=== PATIENT | female | born 2000 | race Caucasian/White ===

== ENCOUNTER 2024-07-01 18:59 | Emergency (ER) | payer OTHER, SELFPAY ==
[2024-07-01 19:04] VITALS: BP 142/102
--- NOTE | 2024-07-01 20:51 | ED.GENMED ---
History of Present Illness
General
Chief Complaint: Headache
Source: patient
Exam Limitations: none
Time Seen by Provider: 07/01/24 20:11
Nursing documentation reviewed up to this point in time: agreed with
History of Present Illness
History of Present Illness:
Patient to ED with headache. Symptoms started 1 mos ago. States she had implantable control placed 1 mos ago. Headahce developed the next day. 2 weeks later she still c/o headache so she had the device removed. States headache continues.
She was seen by PCP and givne rx for sumatriptan. SHe took 1 dose without improvement. Brought self to ED for eval. Denies fever/chills, n/v/d. No vision changes. No history of headaches
Past History
Past History
ED Past Medical History: None
Review of Systems
Review of Systems
Allergies reviewed?: Yes
All Other Systems: ROS reviewed and negative except as documented in HPI and ROS
Constitutional: Reports no symptoms
EENT: Reports no symptoms
Respiratory: Reports no symptoms
Cardiac: Reports no symptoms
ABD/GI: Reports no symptoms
: Reports no symptoms
Musculoskeletal: Reports no symptoms
Skin: Reports no symptoms
Neurological: Reports headache
Psychiatric: Reports no symptoms
Phy Exam
General Physical Exam
General Presentation: well appearing and mild distress
General age: appears stated age
General Skin: warm and dry
General Habitus: normal
General Mental: alert
General Hydration: appears well hydrated
Neurological Exam
Neurological Exam: alert, oriented x3, CN II-XII intact, no motor deficits, no sensory deficits, speech normal and normal gait
Musculoskeletal Exam
Musculoskeletal Exam: full ROM and neuro vasc intact
Skin Exam
Skin Exam: normal color, warm/dry and no rash
Psychiatric Exam
Psychiatric Exam: normal mood/affect
Course
Orders/Labs/Results
Orders:
Orders
07/01/24 20:51
Test Result ONCE
07/01/24 20:58
HCG, Urine Qualitative Screen Urgent
Date Specimen was Collected: 07/01/24
Time Specimen was Collected: 20:54
07/01/24 21:38
CT Head W/o Iv Contrast Urgent
Comment:
Reason For Exam: atypical headache
07/01/24 23:07
Ketorolac [Toradol] 30 mg IM NOW STA
Vital Signs
Initial and Last Documented VS:
Initial Vital Signs
Temp Pulse Resp BP Pulse Ox
98.7 F 107 15 142/102 99
07/01/24 19:04 07/01/24 19:04 07/01/24 19:04 07/01/24 19:04 07/01/24 19:04
Last Documented Vital Signs
Temp Pulse Resp BP Pulse Ox
98.7 F 78 16 138/82 99
07/01/24 19:04 07/01/24 21:18 07/01/24 22:43 07/01/24 21:18 07/01/24 21:18
*Radiology
Radiology exam reviewed: radiology read reviewed
*Pulse Oximetry
Patient hypoxic: no
*Critical Care Note
Total Time (30-74mins, 75-104mins- exclusive of procedures): Not Applicable
Update Note
Update Note:
CT results reviewed with patient. Neuro exam without concerning findings. GIven dose of toradol in ED. WIll discharge home and she will follow upw ith PCP again this week. Given instructions on s/s to return to ED and she is agreeable to plan.
ED Attending Note
-
Portions of this chart may have been created with voice recognition software.� Occasional wrong word or��sound alike� substitutions may have occurred due to the inherent limitations of voice recognition software.
Discharge Plan
Departure
Patient Disposition: Home (Routine Discharge)
Date of Disposition: 07/01/24
Time of Disposition: 23:08
Patient with high blood pressure during this ER visit?: No
Condition: Good
Covid-19: Not Applicable
Discharge Problem:
Headache
Instructions: Headache, Adult (DC)
Prescriptions:
No Action
ondansetron 4 MG tablet,disintegrating
4 mg PO TIDPRN PRN (Reason: nausea) Qty: 12 0RF
Referrals:
Clay Buchanan, [Family Provider] - Follow up in 2-3 days
Interventions
Interventions:
*Risk Screen - Suicide Last Done: 07/01/24 19:00
*General Assessment Last Done: 07/01/24 19:04
*Neglect/Abuse Screening Last Done: 07/01/24 19:04
*ED- Fall Risk Assessment Last Done: 07/01/24 22:43
*ED COVID-19 Vaccine History Last Done: 07/01/24 19:04
ED- Neurological Assessment Last Done: 07/01/24 21:18
Discharge Date and Time
Print Language: TURKISH
[2024-07-01 21:16] LABS: HCG, Urine Qualitative Screen Negative
[2024-07-01 21:18] VITALS: BP 138/82
[2024-07-01 21:24] VITALS: BMI 33.2
[2024-07-01] MEDS: TORADOL 30 MG IM (23:19)
[2024-07-01 23:22] VITALS: BP 110/87
== END 2024-07-01 23:30 | disposition home or self-care (01) ==
LOC: EMR 18:59
PROVIDERS: Nurse Practitioner; EMERGENCY PHYSICIAN Student in an Organized Health Care Education/Training Program; FAMILY PHYSICIAN Internal Medicine
DX: R51.9 Headache, unspecified (principal)
CPT/HCPCS: 99284; 96372; 70450; 81025

== ENCOUNTER 2024-07-06 15:14 | Emergency (ER) | payer OTHER, SELFPAY ==
[2024-07-06 15:20] VITALS: BP 148/91
[2024-07-06 16:33] VITALS: BMI 33.7
[2024-07-06 16:40] VITALS: BP 113/80
[2024-07-06 18:27] VITALS: BP 123/86
[2024-07-06] MEDS: TORADOL 30 MG IV (19:28)
[2024-07-06] MEDS: REGLAN 10 MG IV (19:28)
[2024-07-06] MEDS: BENADRYL 25 MG IV (19:28)
[2024-07-06 19:35] VITALS: BP 110/74
[2024-07-06 19:38] LABS: % Basophils 0.5 % (0-2); % Eosinophils 3.5 % (0-6); % Immature Granulocytes 0.3 % (0-0.5); % Lymphocytes 33.7 % (20.5-51.1); % Monocytes 5.1 % (1.7-9.3); % Neutrophils 56.9 % (42.2-75.2); Absolute Basophils 0.1 10^3/uL (0-0.2); Absolute Eosinophils 0.4 10^3/uL (0-0.7); Absolute Lymphocytes 3.6 10^3/uL (1.2-3.4); Absolute Monocytes 0.6 10^3/uL (0.1-0.6); Absolute Neutrophils 6.1 10^3/uL (1.4-6.5); Hematocrit 42.9 % (37.0-47.0); Hemoglobin 14.2 g/dL (12.0-16.0); Mean Corp Hgb Conc. 33.1 g/dL (33.0-37.0); Mean Corpuscular Hgb 26.8 pg (27.0-31.0); Mean Corpuscular Volume 80.9 fL (81.0-99.0); Mean Platelet Volume 9.2 fL (7.4-10.4); Nucleated Red Blood Cells % 0 %; Platelet Count 371 10^3/uL (130-400); Red Cell Dist. Width 13.5 % (11.5-14.5); White Blood Cell Count 10.7 10^3/uL (4.8-10.8)
--- NOTE | 2024-07-06 19:39 | ED.GENMED ---
History of Present Illness
General
Chief Complaint: Headache
Source: patient
Exam Limitations: none
Time Seen by Provider: 07/06/24 17:59
Nursing documentation reviewed up to this point in time: agreed with
History of Present Illness
History of Present Illness:
The patient is a pleasant 24-year-old female who reports 1 month of a daily headache. Patient reports the pain is constant, gets slightly better with Motrin, but never goes away. Patient was evaluated by her primary Care doctor who prescribed her
sumatriptan, which she states does not help at all. Patient was also given a prescription to have outpatient blood work done as well as an outpatient MRI of her brain. Patient underwent CT of her head 5 days ago and the scan was read as normal.
Patient reports that she was able to schedule an appointment with a neurologist the end of August. Currently her pain is a 7 out of 10. She describes it as right-sided head pain and pain at the base of her head. She denies vision changes from her
left eye. Patient does not have a right eye. Patient denies weakness and numbness. She denies light sensitivity, nausea, vomiting and fever. She denies recent illness.
Past History
Past History
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
ED Past Surgical History: Other (Ocular)
Social History
Tobacco: Non-smoker
Alcohol: Other
Drug: None
Personal: Other
Living: with family
Employment: Other
Family History
Family History: Other (No history of subarachnoid hemorrhage)
Review of Systems
Review of Systems
Allergies reviewed?: Yes
All Other Systems: ROS reviewed and negative except as documented in HPI and ROS
Constitutional: Reports no symptoms
EENT: Reports no symptoms
Respiratory: Reports no symptoms
Cardiac: Reports no symptoms
ABD/GI: Reports no symptoms
: Reports no symptoms
Musculoskeletal: Reports no symptoms
Skin: Reports no symptoms
Neurological: Reports headache
Hematologic/Lymphatic: Reports no symptoms
Psychiatric: Reports no symptoms
Phy Exam
Physical Exam
Physical Exam:
Physical Exam
General: no apparent distress, not acutely ill. Well appearing, smiling
Neck: supple. no meningeal signs. normal psoterior pharynx
Heart: s1/s2 regular rate and rhythm, no murmur. equal radial pulses.
Lungs: no acute respiratory distress. clear bilaterally
Abdomen: normal bowel sounds. not tender. no CVAT
Neuro: alert and orientedx3. no focal neurological deficits, 5 out of 5 strength in all extremities without drift.
Skin: no rash
Psychiatric: well kept. interactive and cooperative
Extremities: no edema. no calf tenderness. negative homans. good distal pulses
Course
Orders/Labs/Results
Orders:
Orders
07/06/24 18:41
Ketorolac [Toradol] 30 mg IV NOW STA
07/06/24 18:42
Diphenhydramine [Benadryl] 25 mg IV NOW STA
Metoclopramide [Reglan] 10 mg IV NOW STA
07/06/24 18:43
Test Result ONCE
07/06/24 19:25
CRP [C-Reactive Protein] Urgent
Complete Blood Count/With Diff Urgent
Comprehensive Metabolic Panel Urgent
D-Dimer Urgent
ESR [Erythrocyte Sed Rate] Urgent
HCG, Serum Qualitative Screen Urgent
Lyme Progressive Urgent
Magnesium Urgent
Abnormal Lab Results
07/06/24
19:25
MCV 80.9 L fL
(81.0-99.0)
MCH 26.8 L pg
(27.0-31.0)
Absolute Lymphs (auto) 3.6 H 10^3/uL
(1.2-3.4)
07/06/24 19:25
07/06/24 19:25
Vital Signs
Initial and Last Documented VS:
Initial Vital Signs
Temp Pulse Resp BP Pulse Ox
98.5 F 81 17 148/91 99
07/06/24 15:20 07/06/24 15:20 07/06/24 15:20 07/06/24 15:20 07/06/24 15:20
Last Documented Vital Signs
Temp Pulse Resp BP Pulse Ox
98.2 F 69 18 110/74 100
07/06/24 19:35 07/06/24 19:35 07/06/24 19:35 07/06/24 19:35 07/06/24 19:35
MDM/Problems Addressed
Differential Diagnosis Includes:
Migraine headache, tension headache, atypical migraine
MDM/Problems Addressed:
Patient presents with subacute headache
Acute Exacerbation and/or Progression of Chronic Illness:
Patient was acutely hypertensive on arrival but now blood pressure is substantially improved
Acute Exacerbation and/or Progression of Chronic Illness: HTN
*Radiology
Radiology exam reviewed: radiology read reviewed (Report reviewed from 07/01/2024)
*Pulse Oximetry
Patient hypoxic: no
*EKG
Interpreted by ED Provider?: NA
*Platform Material Handling Supervisor Interpretation
Rate: Platform Material Handling Supervisor- N/A
*Critical Care Note
Total Time (30-74mins, 75-104mins- exclusive of procedures): Not Applicable
Data Reviewed
Review of Other/Old Records Reveals: Radiology Studies (CT head reviewed from 07/01/2024 which looks normal)
Source: patient
Patient Management
Social determinants of health affecting care: Living situation and Strong social support
Discussion with other providers: Other (Case discussed with neurology on-call, Dr. Dueñas, who recommended Reglan, Benadryl, Toradol and check magnesium, ESR CRP Lyme and D-dimer. She felt patient can safely go home if she responds to these
medications)
Escalation/DeEscalation of care consider admission/obs:
9:00 PM patient reports that her headache is completely gone. She remains very well-appearing. There is no sign of meningitis. She has a completely normal neurological exam. Patient has follow-up with PCP and neurology
ED Attending Note
-
Portions of this chart may have been created with voice recognition software.� Occasional wrong word or��sound alike� substitutions may have occurred due to the inherent limitations of voice recognition software.
Discharge Plan
Departure
Patient Disposition: Home (Routine Discharge)
Date of Disposition: 07/06/24
Time of Disposition: 21:36
Patient with high blood pressure during this ER visit?: No
Condition: Good
Covid-19: Not Applicable
Discharge Problem:
Headache
Instructions: Migraines (DC), Headache, Adult (DC)
Prescriptions:
New
bitvimwkbb-ibhyjiucatasp-kzzv [Fioricet] 50-300-40 mg capsule
1 cap PO TID PRN (Reason: Pain) Qty: 14 0RF
No Action
ondansetron 4 MG tablet,disintegrating
4 mg PO TIDPRN PRN (Reason: nausea) Qty: 12 0RF
Referrals:
Clay Buchanan, DO [Family Provider] -
Activity Restrictions/Additional Instructions:
If you feel the onset of a headache, please take 2 tablets of Aleve every 6-8 hours as needed for the headache. Aleve is sold [id number]. If the headache is severe, you can take 1 Fioricet tablet every 8 hours.
Please follow-up with your neurologist as scheduled
Interventions
Interventions:
*Risk Screen - Suicide Last Done: 07/06/24 15:22
*General Assessment Last Done: 07/06/24 15:22
*Neglect/Abuse Screening Last Done: 07/06/24 15:22
*ED- Fall Risk Assessment Last Done: 07/06/24 16:34
*ED COVID-19 Vaccine History Last Done: 07/06/24 15:22
*Nursing Disposition Last Done: 07/06/24 21:59
ED- Neurological Assessment Last Done: 07/06/24 19:38
Discharge Date and Time
Print Language: CZECH
[2024-07-06 19:44] LABS: HCG, Serum Qualitative Screen Negative
[2024-07-06 19:45] LABS: Erythrocyte Sed Rate 9 mm/hour (0-20)
[2024-07-06 19:47] LABS: D-Dimer < 0.27 ug/mlFEU (0.00-0.50)
[2024-07-06 19:51] LABS: ALT (SGPT) 11 U/L (0-35); AST (SGOT) 25 U/L (14-36); Alkaline Phosphatase 67 U/L (38-126); Blood Urea Nitrogen 11 mg/dl (7-17); Calcium 9.7 mg/dl (8.4-10.2); Carbon Dioxide 23 mmol/L (22-30); Chloride 107 mmol/L (98-107); Estimated Creatinine Clearance > 125 ml/min; Glucose 85 mg/dl (70-99); Magnesium 1.8 mg/dl (1.6-2.3); Potassium 4.5 mmol/L (3.5-5.1); Sodium 140 mmol/L (135-145); Total Bilirubin 0.6 mg/dl (0.2-1.3); Total Protein 8.1 g/dl (6.3-8.2); eGFR > 60.00
[2024-07-07 12:43] LABS: Lyme Antibody Screen, EIA Negative (Negative)
== END 2024-07-06 22:00 | disposition home or self-care (01) ==
LOC: EMR 15:14
PROVIDERS: EMERGENCY PHYSICIAN Emergency Medicine; FAMILY PHYSICIAN Internal Medicine
DX: R51.9 Headache, unspecified (principal); I10 Essential (primary) hypertension
CPT/HCPCS: 99283; 96374; 96375; 80053; 83735; 84703; 85025; 85379; 85652; 86140; 86618

== ENCOUNTER 2024-07-07 16:50 | Emergency (ER) | payer OTHER, SELFPAY ==
[2024-07-07 16:52] VITALS: BP 134/94
[2024-07-07 17:11] LABS: % Basophils 0.4 % (0-2); % Eosinophils 2.1 % (0-6); % Immature Granulocytes 0.3 % (0-0.5); % Lymphocytes 29.1 % (20.5-51.1); % Monocytes 4.6 % (1.7-9.3); % Neutrophils 63.5 % (42.2-75.2); Absolute Eosinophils 0.2 10^3/uL (0-0.7); Absolute Lymphocytes 3.1 10^3/uL (1.2-3.4); Absolute Monocytes 0.5 10^3/uL (0.1-0.6); Absolute Neutrophils 6.7 10^3/uL (1.4-6.5); Hematocrit 42.5 % (37.0-47.0); Hemoglobin 14.3 g/dL (12.0-16.0); Mean Corp Hgb Conc. 33.6 g/dL (33.0-37.0); Mean Corpuscular Hgb 27.2 pg (27.0-31.0); Mean Platelet Volume 9.5 fL (7.4-10.4); Nucleated Red Blood Cells % 0 %; Platelet Count 377 10^3/uL (130-400); Red Blood Cell Count 5.25 10^6/uL (4.20-5.40); Red Cell Dist. Width 13.6 % (11.5-14.5); White Blood Cell Count 10.5 10^3/uL (4.8-10.8)
[2024-07-07 17:24] LABS: ALT (SGPT) 12 U/L (0-35); AST (SGOT) 21 U/L (14-36); Alkaline Phosphatase 69 U/L (38-126); Blood Urea Nitrogen 14 mg/dl (7-17); Calcium 9.6 mg/dl (8.4-10.2); Carbon Dioxide 24 mmol/L (22-30); Chloride 106 mmol/L (98-107); Glucose 149 mg/dl (70-99); Sodium 142 mmol/L (135-145); Total Bilirubin 0.5 mg/dl (0.2-1.3); Total Protein 8.1 g/dl (6.3-8.2); eGFR > 60.00
[2024-07-07 17:35] LABS: Troponin I < 0.012 ng/ml
--- NOTE | 2024-07-07 18:23 | ED.GENMED ---
History of Present Illness
General
Chief Complaint: Cardiac Symptoms
Source: patient
Exam Limitations: none
Time Seen by Provider: 07/07/24 18:20
Nursing documentation reviewed up to this point in time: agreed with
History of Present Illness
History of Present Illness:
24-year-old female presents emergency room complaining of chest tightness and shortness of breath since last night. She denies any discomfort at this time. She was here yesterday for a headache, that has gone away.
Past History
Past History
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
ED Past Surgical History: Other (Ocular)
Social History
Tobacco: Non-smoker
Alcohol: Other
Drug: None
Personal: Other
Living: with family
Employment: Other
Family History
Family History: Other (No history of subarachnoid hemorrhage)
Review of Systems
Review of Systems
Allergies reviewed?: Yes
All Other Systems: Not applicable
Constitutional: Reports no symptoms
EENT: Reports no symptoms
Respiratory: Reports trouble breathing
Cardiac: Reports chest pain
ABD/GI: Reports no symptoms
: Reports no symptoms
Musculoskeletal: Reports no symptoms
Skin: Reports no symptoms
Neurological: Reports no symptoms
Endocrine: Reports no symptoms
Hematologic/Lymphatic: Reports no symptoms
Psychiatric: Reports no symptoms
Phy Exam
Physical Exam
Physical Exam:
Physical Exam
General: no apparent distress, not acutely ill
Neck: supple. no meningeal signs. normal posterior pharynx
Heart: s1/s2 regular rate and rhythm, no murmur. equal radial
pulses.
HEENT: Left pupil round reactive to light, EOMI. Right orbit covered with eyepatch
Lungs: no acute respiratory distress. clear bilaterally
Abdomen: normal bowel sounds. not tender. no CVAT
Neuro: alert and oriented. no focal neurological deficits cranial nerves II through XII intact
Skin: no rash
Psychiatric: well kept. interactive and cooperative
Extremities: no edema. no calf tenderness. negative homans. good distal pulses
Scores
Heart Score for Chest Pain Patients
STEMI patient?: No
History: Slightly or Non-Suspicious
ECG: Normal
Age: </= 45 years
Risk Factors: No Risk Factors
Troponin: </= Normal Limit
Heart Score for Chest Pain Patients: 0
Heart Score Risk: 2.5% MACE over next 6 weeks
Course
Orders/Labs/Results
Orders:
Orders
07/07/24 16:54
Electrocardiogram (*1) Urgent
Reason for Study: Chest Pain
CR Chest - 2 Views Urgent
Comment:
Reason For Exam: chest pain
07/07/24 16:55
EKG- Treatment ONCE
07/07/24 17:01
Complete Blood Count/With Diff Urgent
Comprehensive Metabolic Panel Urgent
Troponin I Urgent
Abnormal Lab Results
07/07/24
17:01
Absolute Neuts (auto) 6.7 H 10^3/uL
(1.4-6.5)
Glucose 149 H mg/dl
(70-99)
07/07/24 17:01
07/07/24 17:01
Vital Signs
Initial and Last Documented VS:
Initial Vital Signs
Temp Pulse Resp BP Pulse Ox
98.2 F 120 20 134/94 98
07/07/24 16:52 07/07/24 16:52 07/07/24 16:52 07/07/24 16:52 07/07/24 16:52
Last Documented Vital Signs
Temp Pulse Resp BP Pulse Ox
98.2 F 94 18 134/94 99
07/07/24 16:52 07/07/24 19:08 07/07/24 19:08 07/07/24 16:52 07/07/24 19:08
MDM/Problems Addressed
Differential Diagnosis Includes:
PE, pneumonia
MDM/Problems Addressed:
24-year-old female with chest tightness. D-dimer negative, no acute findings on chest x-ray. EKG with mild sinus tachycardia. Doubt PE or ACS. Patient stable for discharge.
*Radiology
Radiology exam reviewed: preliminary read by ED provider (Chest x-ray no acute findings)
*Pulse Oximetry
Patient hypoxic: no
*EKG
Interpreted by ED Provider?: Yes
EKG Intrepretation Date: 07/07/24
EKG Intrepretation Time: 17:09
Interpretation: abnormal
Comparison EKG: no comparison EKG present
Heart Rate: 113
Rate: tachycardiac
Rhythm: sinus tachycardia
Burt: normal axis
Interval: normal interval
QRS Pattern: normal QRS
Ischemia: no ischemia
*Assistant Associate Professor Interpretation
Rate: Assistant Associate Professor- N/A
*Critical Care Note
Total Time (30-74mins, 75-104mins- exclusive of procedures): Not Applicable
Patient Management
Social determinants of health affecting care: Living situation and Strong social support
Escalation/DeEscalation of care consider admission/obs:
Admit not indicated
ED Attending Note
-
Portions of this chart may have been created with voice recognition software.� Occasional wrong word or��sound alike� substitutions may have occurred due to the inherent limitations of voice recognition software.
Discharge Plan
Departure
Patient Disposition: Home (Routine Discharge)
Date of Disposition: 07/07/24
Time of Disposition: 20:12
Patient with high blood pressure during this ER visit?: Yes
Condition: Good
Discharge Problem:
Chest tightness
Instructions: Chest Pain (DC), BLOOD PRESSURE
Prescriptions:
No Action
ondansetron 4 MG tablet,disintegrating
4 mg PO TIDPRN PRN (Reason: nausea) Qty: 12 0RF
thtptcpbdh-ittutbklcqzda-kenu [Fioricet] 50-300-40 mg capsule
1 cap PO TID PRN (Reason: Pain) Qty: 14 0RF
Referrals:
Clay Buchanan, [Family Provider] - Call in 1-3 days for appt
Interventions
Interventions:
*Risk Screen - Suicide Last Done: 07/07/24 19:08
*General Assessment Last Done: 07/07/24 16:52
*Neglect/Abuse Screening Last Done: 07/07/24 19:08
*ED- Fall Risk Assessment Last Done: 07/07/24 19:08
*ED COVID-19 Vaccine History Last Done: 07/07/24 19:08
ED- Pulmonary Assessment Last Done: 07/07/24 19:08
ED- Cardiac Assessment Last Done: 07/07/24 19:08
Discharge Date and Time
Print Language: LATVIAN
== END 2024-07-07 20:24 | disposition home or self-care (01) ==
LOC: EMR 16:50
PROVIDERS: Emergency Medicine; EMERGENCY PHYSICIAN Emergency Medicine; FAMILY PHYSICIAN Internal Medicine
DX: R07.89 Other chest pain (principal)
CPT/HCPCS: 99283; 71046; 80053; 84484; 85025; 93005

== ENCOUNTER 2024-08-14 13:56 | Emergency (ER) | payer OTHER, SELFPAY ==
[2024-08-14 14:05] VITALS: BP 134/100
[2024-08-14 14:39] LABS: % Basophils 0.4 % (0-2); % Eosinophils 2.9 % (0-6); % Immature Granulocytes 0.4 % (0-0.5); % Lymphocytes 33.5 % (20.5-51.1); % Monocytes 5.7 % (1.7-9.3); % Neutrophils 57.1 % (42.2-75.2); Absolute Eosinophils 0.3 10^3/uL (0-0.7); Absolute Lymphocytes 3.3 10^3/uL (1.2-3.4); Absolute Monocytes 0.6 10^3/uL (0.1-0.6); Absolute Neutrophils 5.7 10^3/uL (1.4-6.5); Hematocrit 40.9 % (37.0-47.0); Hemoglobin 13.9 g/dL (12.0-16.0); Mean Corpuscular Volume 79.6 fL (81.0-99.0); Mean Platelet Volume 9.4 fL (7.4-10.4); Nucleated Red Blood Cells % 0 %; Platelet Count 405 10^3/uL (130-400); Red Blood Cell Count 5.14 10^6/uL (4.20-5.40); Red Cell Dist. Width 13.4 % (11.5-14.5)
[2024-08-14 14:48] LABS: HCG, Serum Qualitative Screen Negative
[2024-08-14 14:52] LABS: ALT (SGPT) < 10 U/L (0-35); AST (SGOT) 17 U/L (14-36); Albumin 4.7 g/dl (3.5-5.0); Alkaline Phosphatase 60 U/L (38-126); Blood Urea Nitrogen 9 mg/dl (7-17); Calcium 9.7 mg/dl (8.4-10.2); Carbon Dioxide 23 mmol/L (22-30); Chloride 106 mmol/L (98-107); Glucose 87 mg/dl (70-99); Potassium 4.3 mmol/L (3.5-5.1); Sodium 141 mmol/L (135-145); Total Bilirubin 0.7 mg/dl (0.2-1.3); Total Protein 7.8 g/dl (6.3-8.2); eGFR > 60.00
[2024-08-14 15:21] LABS: TSH Reflex To Free T4 1.27 uIU/ml (0.47-4.68)
--- NOTE | 2024-08-14 17:04 | ED.GENMED ---
History of Present Illness
General
Chief Complaint: Breathing Problem
Source: patient
Exam Limitations: none
Time Seen by Provider: 08/14/24 16:24
Nursing documentation reviewed up to this point in time: agreed with
History of Present Illness
History of Present Illness:
Patient to ED with complaint of not being able to take a deep breath, chest tightness. She was seen here approx 2 mos ago with same complaint. Workup did not reveal any concerning fidings States she waas seen at yesterday. CXR neg. Denies
feve/chills, cough. No leg pain or swelling. No other complaints
Past History
Past History
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
ED Past Surgical History: Other (Ocular)
Social History
Tobacco: Non-smoker
Alcohol: Other
Drug: None
Personal: Other
Living: with family
Employment: Other
Family History
Family History: Other (No history of subarachnoid hemorrhage)
Review of Systems
Review of Systems
Allergies reviewed?: Yes
All Other Systems: ROS reviewed and negative except as documented in HPI and ROS
Constitutional: Reports no symptoms
EENT: Reports no symptoms
Respiratory: Reports trouble breathing
Cardiac: Reports no symptoms
ABD/GI: Reports no symptoms
: Reports no symptoms
Musculoskeletal: Reports no symptoms
Skin: Reports no symptoms
Neurological: Reports no symptoms
Psychiatric: Reports no symptoms
Phy Exam
General Physical Exam
General Presentation: well appearing and no apparent distress
General age: appears stated age
General Skin: warm and dry
General Habitus: normal
General Mental: alert
General Hydration: appears well hydrated
Cardiovascular Exam
Cardiovascular Exam: regular rate/rhythm and no edema
Pulmonary Exam
Pulmonary Exam: lungs clear and no respiratory distress
Musculoskeletal Exam
Musculoskeletal Exam: full ROM and neuro vasc intact
Skin Exam
Skin Exam: normal color, warm/dry and no rash
Psychiatric Exam
Psychiatric Exam: normal mood/affect
Course
Orders/Labs/Results
Orders:
Orders
08/14/24 13:58
Electrocardiogram (*1) Urgent
Reason for Study: Chest Pain
EKG- Treatment ONCE
08/14/24 14:08
Test Result ONCE
08/14/24 14:17
Complete Blood Count/With Diff Urgent
Comprehensive Metabolic Panel Urgent
HCG, Serum Qualitative Screen Urgent
TSH Reflex To Free T4 Urgent
08/14/24 17:12
D-Dimer Urgent
Abnormal Lab Results
08/14/24
14:17
MCV 79.6 L fL
(81.0-99.0)
Plt Count 405 H 10^3/uL
(130-400)
08/14/24 14:17
08/14/24 14:17
Vital Signs
Initial and Last Documented VS:
Initial Vital Signs
Temp Pulse Resp BP Pulse Ox
98.3 F 88 18 134/100 98
08/14/24 14:05 08/14/24 14:05 08/14/24 14:05 08/14/24 14:05 08/14/24 14:05
Last Documented Vital Signs
Temp Pulse Resp BP Pulse Ox
98.3 F 86 20 134/100 100
08/14/24 14:05 08/14/24 16:17 08/14/24 16:17 08/14/24 14:05 08/14/24 16:17
*Critical Care Note
Total Time (30-74mins, 75-104mins- exclusive of procedures): Not Applicable
Update Note
Update Note:
Patient to ED with complaint of feeling like she cant take a deep breath. She was seen in ED in the past for same. Exam was normal at that time. She reports she had an outpatient CXR yesterday that was ' normal'. She remains afebrile. No cough.
No chest pain or pressure. Labs reviewed. No concerning findings. EKG NSR. DDimer neg. Pulse ox remains 99% RA. VSS. Will discharge home and she was instructed to [facility] PCP in the AM. Given number for pulmonology also. Given
instructions on s/s to return to ED and she is agreeable to plan.
ED Attending Note
-
Portions of this chart may have been created with voice recognition software.� Occasional wrong word or��sound alike� substitutions may have occurred due to the inherent limitations of voice recognition software.
Discharge Plan
Departure
Patient Disposition: Home (Routine Discharge)
Date of Disposition: 08/14/24
Time of Disposition: 18:10
Patient with high blood pressure during this ER visit?: No
Condition: Good
Covid-19: Not Applicable
Discharge Problem:
Chest tightness
Instructions: Shortness of Breath (Dyspnea) (DC)
Prescriptions:
No Action
ondansetron 4 MG tablet,disintegrating
4 mg PO TIDPRN PRN (Reason: nausea) Qty: 12 0RF
rubunhnrsq-wufabbgyzqeii-kawm [Fioricet] 50-300-40 mg capsule
1 cap PO TID PRN (Reason: Pain) Qty: 14 0RF
Referrals:
Clay Buchanan DO [Family Provider] - Tomorrow
Cely Brar MD [Active] - Next open appointment
Interventions
Interventions:
*Risk Screen - Suicide Last Done: 08/14/24 14:05
*General Assessment Last Done: 08/14/24 14:05
*Neglect/Abuse Screening Last Done: 08/14/24 16:15
*ED COVID-19 Vaccine History Last Done: 08/14/24 14:05
*Nursing Disposition Last Done: 08/14/24 18:22
ED- Cardiac Assessment Last Done: 08/14/24 16:15
ED- Pulmonary Assessment Last Done: 08/14/24 16:15
Discharge Date and Time
Print Language: NIUEAN
[2024-08-14 18:02] LABS: D-Dimer < 0.27 ug/mlFEU (0.00-0.50)
== END 2024-08-14 18:22 | disposition home or self-care (01) ==
LOC: EMR 13:56
PROVIDERS: Emergency Medicine; Nurse Practitioner; EMERGENCY PHYSICIAN Student in an Organized Health Care Education/Training Program; FAMILY PHYSICIAN Internal Medicine
DX: R07.89 Other chest pain (principal)
CPT/HCPCS: 99283; 80053; 84443; 84703; 85025; 85379; 93005

== ENCOUNTER 2024-08-30 20:42 | Emergency (ER) | payer OTHER, SELFPAY ==
[2024-08-30 20:43] VITALS: BP 135/100
--- NOTE | 2024-08-31 00:07 | ED.GENMED ---
History of Present Illness
General
Chief Complaint: Anxiety
Source: patient
Exam Limitations: none
Time Seen by Provider: 08/30/24 23:53
History of Present Illness
History of Present Illness:
See MDM
Past History
Past History
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
ED Past Surgical History: Other (Ocular)
Social History
Tobacco: Non-smoker
Alcohol: Other
Drug: None
Personal: Other
Living: with family
Employment: Other
Family History
Family History: Other (No history of subarachnoid hemorrhage)
Phy Exam
Physical Exam
Physical Exam:
See MDM
Course
Orders/Labs/Results
Orders:
Orders
08/31/24 00:07
Electrocardiogram (*1) Urgent
Reason for Study: Shortness of Breath
EKG- Treatment ONCE
HydrOXYZINE [Atarax] 25 mg PO NOW STA
Vital Signs
Initial and Last Documented VS:
Initial Vital Signs
Temp Pulse Resp BP Pulse Ox
98.1 F 75 18 135/100 100
08/30/24 20:43 08/30/24 20:43 08/30/24 20:43 08/30/24 20:43 08/30/24 20:43
Last Documented Vital Signs
Temp Pulse Resp BP Pulse Ox
98.1 F 75 18 135/100 100
08/30/24 20:43 08/30/24 20:43 08/30/24 20:43 08/30/24 20:43 08/31/24 00:10
MDM/Problems Addressed
Differential Diagnosis Includes:
HPI and MDM Narrative:
24-year-old female presenting back to the emergency department with chest pressure. She has been to the emergency department twice already for the same complaint and has had negative workup. She has been started on BuSpar which she thinks has been
helping. He developed symptoms earlier today and she had a home pulse oximeter which was reading 80%. Patient was worried and came to the emergency department. On arrival, patient found to be 100% on room air. She is now starting to feel better.
EKG showing no ischemic abnormalities. Will give dose of hydroxyzine
Physical exam
General: Well appearing and non-toxic
HEENT: protecting airway
Neck: appears supple
CV: No evidence of cyanosis. Regular rate and rhythm
Resp: No accessory muscle use. Lungs clear
Abd: Non-distended
Extremities: No deformities. No leg edema
Neuro: alert
Psych: Mildly anxious
Skin: Intact
Problems Addressed including Acute and Chronic Conditions affecting care:
1. Chest pressure and shortness of breath
Acuity: acute
Prognosis: stable
Details: Hypoxia resolved. It was likely related to the pulse oximeter at home. Lungs clear. EKG nonischemic. Will start hydroxyzine on an as-needed basis
Differential Diagnosis (but not limited to): Anxiety, faulty pulse oximeter
Testing considered: Chest x-ray
Drug therapy (if applicable): OTC meds, please see d/c instruction regarding Rx drugs
Amount and/or Complexity of Data Reviewed
Clinical info obtained from: Patient
External data reviewed: Prior evaluations for similar complaints with negative workup
Labs I independently reviewed (but not limited to): N/A
Radiology: N/A
Pulse Ox: not hypoxic
EKG independently reviewed: Sinus rhythm, normal axis, no STEMI
Arboriculture Teacher: N/A
Critical Care: N/A
Risk of Complication:
Social Determinants of health: Good social support
Discussed with other providers: N/A
Escalation of Care includes Admit/Obs: After being observed in the Emergency Department, pt stable for discharge.
Occasional wrong word or 'sound a like' substitutions may have occurred due to the inherent limitations of voice recognition software. Read the chart carefully and recognize, using context, where substitutions have occurred.
*Critical Care Note
Total Time (30-74mins, 75-104mins- exclusive of procedures): Not Applicable
ED Attending Note
-
Portions of this chart may have been created with voice recognition software.� Occasional wrong word or��sound alike� substitutions may have occurred due to the inherent limitations of voice recognition software.
Discharge Plan
Departure
Patient Disposition: Home (Routine Discharge)
Date of Disposition: 08/31/24
Time of Disposition: 00:25
Patient with high blood pressure during this ER visit?: No
Discharge Problem:
Chest pressure
Prescriptions:
New
hydroxyzine HCl 25 mg tablet
25 mg PO BID PRN (Reason: anxiety) Qty: 20 0RF
No Action
ondansetron 4 MG tablet,disintegrating
4 mg PO TIDPRN PRN (Reason: nausea) Qty: 12 0RF
icxhpobwqy-[id number]-tkis [Fioricet] 50-300-40 mg capsule
1 cap PO TID PRN (Reason: Pain) Qty: 14 0RF
Referrals:
UNKNOWN - PT DOES,NOT KNOW [Family Provider] -
Activity Restrictions/Additional Instructions:
Please return for any worsening symptoms.
You may return at any time if you have further concerns.
Please follow up with your doctor at the first available appointment, preferably this week.
Thank you for choosing [facility].
Interventions
Interventions:
*Risk Screen - Suicide Last Done: 08/31/24 00:26
*General Assessment Last Done: 08/30/24 20:43
*Neglect/Abuse Screening Last Done: 08/31/24 00:10
*ED- Fall Risk Assessment Last Done: 08/31/24 00:10
*ED COVID-19 Vaccine History Last Done: 08/30/24 20:43
ED-Psychological Assessment Last Done: 08/31/24 00:10
Discharge Date and Time
Print Language: PUERTO RICAN
[2024-08-31 00:09] VITALS: BMI 32.9
[2024-08-31] MEDS: ATARAX 25 MG PO (00:21)
== END 2024-08-31 00:41 | disposition home or self-care (01) ==
LOC: EMR 20:42
PROVIDERS: EMERGENCY PHYSICIAN Student in an Organized Health Care Education/Training Program
DX: R07.89 Other chest pain (principal); F41.9 Anxiety disorder, unspecified
CPT/HCPCS: 99283; 93005

== ENCOUNTER → 2024-10-22 09:38 | Outpatient (REF) | payer OTHER, SELFPAY | LOC: EMG 09:38 | PROVIDERS: ATTENDING PHYSICIAN Internal Medicine | DX: G56.03 Carpal tunnel syndrome, bilateral upper limbs (principal); R20.0 Anesthesia of skin | CPT/HCPCS: 95886; 95912 ==